=== PATIENT | male | born 1965 | race Caucasian/White ===

== ENCOUNTER 2021-09-24 20:40 | Emergency (ER) | payer OTHER ==
[2021-09-24] MEDS ORDERED: Proparacaine 0.5% Ophth Soln 15 ML Bottle EYELF STA (21:13)
[2021-09-24] MEDS ORDERED: Fluorescein 1 MG Ophth Strip EYELF STA (21:14)
[2021-09-24] MEDS ORDERED: Erythromycin Base 0.5% Ophth Oint 1 GM Tube EYELF STA (21:29)
== END 2021-09-24 21:51 | disposition home or self-care (01) ==
LOC: JD.ED 20:40
DX: H18.892 Other specified disorders of cornea, left eye (principal); Z91.048 Other nonmedicinal substance allergy status; Z88.7 Allergy status to serum and vaccine
CPT/HCPCS: 99283; A9270